=== PATIENT | male | born 1950 | race Caucasian/White ===

== ENCOUNTER 2023-10-06 13:53 | Outpatient (RCR) | payer MEDICARE, OTHER, SELFPAY | END 2023-10-06 23:59 | disposition home or self-care (01) | LOC: ROT 13:53 | PROVIDERS: ATTENDING PHYSICIAN Physical Medicine & Rehabilitation; FAMILY PHYSICIAN Internal Medicine | DX: S12.9XXD Fracture of neck, unspecified, subsequent encounter (principal); Z73.6 Limitation of activities due to disability | CPT/HCPCS: 97140; 97166; 97530; 97535 ==